=== PATIENT | male | born 1955 | race Caucasian/White ===

== ENCOUNTER 2017-11-03 11:00 | Emergency (ER) | payer BC, OTHER ==
[2017-11-03] MEDS ORDERED: Sodium Chloride 0.9% 10 ML Syringe FLUSH PRN (11:49)
[2017-11-03] MEDS ORDERED: Labetalol 100 MG/20 ML MDV IVPUSH ONE ×2 (11:49→12:59)
[2017-11-03] MEDS ORDERED: Meclizine 12.5 MG Tab PO ONE (11:52)
--- NOTE | 2017-11-03 12:44 | CT ---
Head CT Technique: Multiple axial sections through the brain were obtained. Intravenous contrast was not utilized. Comparison: No prior intracranial imaging. Findings: Ventricles along with basal cisterns and sulci over the convexities are mildly prominent. Diminished density is noted within the periventricular and subcortical white matter compatible with small vessel ischemic demyelination change. No other abnormal parenchymal densities are seen. No evidence of intracranial hemorrhage. No midline shift or mass effect is seen. Bone window settings were reviewed which shows the visualized sinuses to appear clear. No acute calvarial abnormality is seen. Impression: 1. Senescent change as noted above. No acute intracranial abnormality is identified on noncontrast head CT exam. Diagnostic code #1
--- NOTE | 2017-11-03 12:50 | CR ---
Chest: Portable view of the chest was obtained. Comparison: No prior chest x-ray, prior chest CT of 03/15/14. Heart is enlarged. Tortuous thoracic aorta is seen. Lungs are clear with no acute parenchymal densities. Possible small right sided pleural effusion is noted. Bony structures are grossly intact. Impression: 1. Cardiomegaly. Possible small right sided pleural effusion. 2. No additional abnormality is seen on portable chest x-ray. Diagnostic code #2
[2017-11-03] MEDS ORDERED: Ondansetron 4 MG/2 ML SDV IVPUSH STA (13:19)
[2017-11-03] MEDS ORDERED: Calcium Gluconate 10% 1 GM/10 ML SDV IVPUSH ONE (14:01)
[2017-11-03] MEDS ORDERED: Sodium Bicarbonate 8.4% 50 MEQ/50 ML Syringe IVPUSH ONE (14:02)
[2017-11-03] MEDS ORDERED: 50% Dextrose in Water 50 ML Syringe ONE (14:29)
[2017-11-03] MEDS ORDERED: 50% Dextrose in Water 50 ML Syringe IVPUSH ONE ×3 (14:32→15:40)
--- NOTE | 2017-11-03 14:33 | EDM.PDOC ---
ED HPI GENERAL MEDICAL PROBLEM - General Chief Complaint: Neurological Problem Stated Complaint: DIZZY Time Seen by Provider: 11/03/17 11:15 Source of Information: Reports: Patient, RN Notes Reviewed - History of Present Illness INITIAL COMMENTS - FREE TEXT/NARRATIVE: 62 year old male comes in with dizziness. He had onset of this yesterday and than again this past morning. He felt that he was "off balance", describes vertigo type sensation of "things moving around about him", feeling motion sick with at least one episode of nausea and vomiting this morning. Symptoms are worse when standing and walking, better when he is lying still not moving. He has hx of htn, has had multiple meds prescribed in the past but has not been taking meds for what sounds like 2 or 3 years, has not seen a medical doctor for a long time. He does deny chest pain, abd pain, Dawn or low back pain at this time.He denies known hx for diabetes, CAD. - Related Data Allergies Allergy/AdvReac Type Severity Reaction Status Date / Time No Known Allergies Allergy Verified 03/12/15 12:47 Home Meds: Home Meds . [No Known Home Meds] 03/15/14 [History] Past Medical History - Past Health History Medical/Surgical History: Denies Medical/Surgical History HEENT History: Reports: Impaired Vision Other HEENT History: Wears glasses Cardiovascular History: Reports: Heart Failure, Hypertension, [place] Musculoskeletal History: Reports: Osteoarthritis Psychiatric History: Reports: Depression Other Psychiatric History: depends on the days Social & Family History - Tobacco Use Smoking Status *Q: Never Smoker - Caffeine Use Caffeine Use: Reports: Soda - Recreational Drug Use Recreational Drug Use: No ED ROS GENERAL - Review of Systems Review Of Systems: See Below Constitutional: Denies: Fever, Chills, Diaphoresis HEENT: Denies: Throat Pain Respiratory: Denies: Shortness of Breath, Pleuritic Chest Pain Cardiovascular: Reports: Lightheadedness. Denies: Chest Pain, Edema GI/Abdominal: Reports: Nausea, Vomiting (gone). Denies: Abdominal Pain, Diarrhea Musculoskeletal: Reports: Neck Pain Skin: Denies: Jaundice, Rash, Erythema Neurological: Reports: Dizziness, Weakness (generalized). Denies: Headache, Numbness, Tingling, Trouble Speaking, Difficulty Walking ED EXAM, DIZZINESS - Physical Exam Exam: See Below General Appearance: Alert, No Apparent Distress Eye Exam: Bilateral Eye: PERRL Throat/Mouth: Normal Inspection Head Exam: Atraumatic. No: Facial Swelling Neck: Supple. No: Lymphadenopathy (L), Lymphadenopathy (R) Respiratory/Chest: No Respiratory Distress, Lungs Clear, Normal Breath Sounds Cardiovascular: Regular Rate, Rhythm GI/Abdominal: Soft, Non-Tender, No Distention. No: Guarding Neurological: Alert, No Motor/Sensory Deficits Back Exam: No: CVA Tenderness (L), CVA Tenderness (R) Extremities: Other (there is duskiness of distal fingers bilat., feet are cool ). No: Pedal Edema, Leg Pain EKG INTERPRETATION EKG Date: 11/03/17 Rhythm: NSR Donovan: Normal P-Wave: Present QRS: Other (ventricular hypertrophy) ST-T: Other (peaked t wave) Course - Vital Signs Last Recorded V/S: Last Vital Signs Temp 95.7 F 11/03/17 11:15 Pulse 60 11/03/17 14:49 Resp 18 11/03/17 14:49 BP 159/88 H 11/03/17 14:49 Pulse Ox 93 L 11/03/17 14:49 - Orders/Labs/Meds Orders: Active Orders 24 hr Category Date Time Status EKG 12 Lead [EKG Documentation Completion] [RC] STAT Care 11/03/17 11:48 Active Glucose [Blood Glucose Check, Bedside] [RC] ONETIME Care 11/03/17 17:07 Active POC Glucose [Blood Glucose Check, Bedside] [RC] ONETIME Care 11/03/17 15:25 Active Peripheral IV Care [RC] . DIRECTED Care 11/03/17 11:50 Active HEPATITIS B SURFACE AG [CHEM] Stat Lab 11/03/17 12:15 Received Peripheral IV Insertion Adult [OM.PC] Stat Oth 11/03/17 11:49 Ordered Labs: Laboratory Tests 11/03/17 11/03/17 11/03/17 Range/Units 12:15 12:15 12:15 WBC 11.53 H (4.23-9.07) K/mm3 RBC 4.58 L (4.63-6.08) M/mm3 Hgb 11.9 L (13.7-17.5) gm/L Hct 39.5 L (40.1-51.0) % MCV 86.2 (79.0-92.2) fl MCH 26.0 (25.7-32.2) pg MCHC 30.1 L (32.2-35.5) g/dl RDW Std Deviation 60.3 H (35.1-43.9) fL Plt Count 207 (163-337) K/mm3 MPV 10.7 (9.4-12.3) fl Neut % (Auto) 75.6 H (34.0-67.9) % Lymph % (Auto) 7.6 L (21.8-53.1) % [place] % (Auto) 12.3 H (5.3-12.2) % Eos % (Auto) 0.1 L (0.8-7.0) Baso % (Auto) 0.2 (0.1-1.2) % Neut # (Auto) 8.71 H (1.78-5.38) K/mm3 Lymph # (Auto) 0.88 L (1.32-3.57) K/mm3 [place] # (Auto) 1.42 H (0.30-0.82) K/mm3 Eos # (Auto) 0.01 L (0.04-0.54) K/mm3 Baso # (Auto) 0.02 (0.01-0.08) K/mm3 Manual Slide Review Abnormal smear Sodium 138 (136-145) mEq/L Potassium 6.2 H* (3.5-5.1) mEq/L Chloride 104 (98-107) mEq/L Carbon Dioxide 9 L (21-32) mEq/L Anion Gap 31.2 H (5-15) BUN 62 H (7-18) mg/dL Creatinine 4.0 H (0.7-1.3) mg/dL Est Cr Clr Drug Dosing 18.29 mL/min Estimated GFR (MDRD) 15 (>60) mL/min BUN/Creatinine Ratio 15.5 (14-18) Glucose 41 L (80-115) mg/dL POC Glucose (80-115) mg/dL Calcium 9.0 (8.5-10.1) mg/dL Total Bilirubin 3.4 H (0.2-1.0) mg/dL AST 4307 H (15-37) U/L ALT 2403 H (16-63) U/L Alkaline Phosphatase 150 H (46-116) U/L Troponin I 0.302 H* (0.00-0.056) ng/mL Total Protein 9.3 H (6.4-8.2) g/dl Albumin 3.3 L (3.4-5.0) g/dl Globulin 6.0 gm/dL Albumin/Globulin Ratio 0.6 L (1-2) Acetaminophen (10-30) ug/mL Hepatitis C Antibody Negative (NEGATIVE) HIV-1 Ab Rapid Screen Negative (NEGATIVE) 11/03/17 11/03/17 11/03/17 Range/Units 13:30 15:02 15:35 WBC (4.23-9.07) K/mm3 RBC (4.63-6.08) M/mm3 Hgb (13.7-17.5) gm/L Hct (40.1-51.0) % MCV (79.0-92.2) fl MCH (25.7-32.2) pg MCHC (32.2-35.5) g/dl RDW Std Deviation (35.1-43.9) fL Plt Count (163-337) K/mm3 MPV (9.4-12.3) fl Neut % (Auto) (34.0-67.9) % Lymph % (Auto) (21.8-53.1) % [place] % (Auto) (5.3-12.2) % Eos % (Auto) (0.8-7.0) Baso % (Auto) (0.1-1.2) % Neut # (Auto) (1.78-5.38) K/mm3 Lymph # (Auto) (1.32-3.57) K/mm3 [place] # (Auto) (0.30-0.82) K/mm3 Eos # (Auto) (0.04-0.54) K/mm3 Baso # (Auto) (0.01-0.08) K/mm3 Manual Slide Review Sodium (136-145) mEq/L Potassium 6.8 H* (3.5-5.1) mEq/L Chloride (98-107) mEq/L Carbon Dioxide (21-32) mEq/L Anion Gap (5-15) BUN (7-18) mg/dL Creatinine (0.7-1.3) mg/dL Est Cr Clr Drug Dosing mL/min Estimated GFR (MDRD) (>60) mL/min BUN/Creatinine Ratio (14-18) Glucose 266 H (80-115) mg/dL POC Glucose 33 L (80-115) mg/dL Calcium (8.5-10.1) mg/dL Total Bilirubin (0.2-1.0) mg/dL AST (15-37) U/L ALT (16-63) U/L Alkaline Phosphatase (46-116) U/L Troponin I (0.00-0.056) ng/mL Total Protein (6.4-8.2) g/dl Albumin (3.4-5.0) g/dl Globulin gm/dL Albumin/Globulin Ratio (1-2) Acetaminophen (10-30) ug/mL Hepatitis C Antibody (NEGATIVE) HIV-1 Ab Rapid Screen (NEGATIVE) 11/03/17 11/03/17 11/03/17 Range/Units 15:38 16:09 17:01 WBC (4.23-9.07) K/mm3 RBC (4.63-6.08) M/mm3 Hgb (13.7-17.5) gm/L Hct (40.1-51.0) % MCV (79.0-92.2) fl MCH (25.7-32.2) pg MCHC (32.2-35.5) g/dl RDW Std Deviation (35.1-43.9) fL Plt Count (163-337) K/mm3 MPV (9.4-12.3) fl Neut % (Auto) (34.0-67.9) % Lymph % (Auto) (21.8-53.1) % [place] % (Auto) (5.3-12.2) % Eos % (Auto) (0.8-7.0) Baso % (Auto) (0.1-1.2) % Neut # (Auto) (1.78-5.38) K/mm3 Lymph # (Auto) (1.32-3.57) K/mm3 [place] # (Auto) (0.30-0.82) K/mm3 Eos # (Auto) (0.04-0.54) K/mm3 Baso # (Auto) (0.01-0.08) K/mm3 Manual Slide Review Sodium (136-145) mEq/L Potassium (3.5-5.1) mEq/L Chloride (98-107) mEq/L Carbon Dioxide (21-32) mEq/L Anion Gap (5-15) BUN (7-18) mg/dL Creatinine (0.7-1.3) mg/dL Est Cr Clr Drug Dosing mL/min Estimated GFR (MDRD) (>60) mL/min BUN/Creatinine Ratio (14-18) Glucose (80-115) mg/dL POC Glucose 35 L 60 L (80-115) mg/dL Calcium (8.5-10.1) mg/dL Total Bilirubin (0.2-1.0) mg/dL AST (15-37) U/L ALT (16-63) U/L Alkaline Phosphatase (46-116) U/L Troponin I (0.00-0.056) ng/mL Total Protein (6.4-8.2) g/dl Albumin (3.4-5.0) g/dl Globulin gm/dL Albumin/Globulin Ratio (1-2) Acetaminophen 0 L (10-30) ug/mL Hepatitis C Antibody (NEGATIVE) HIV-1 Ab Rapid Screen (NEGATIVE) Meds: Medications Discontinued Medications Generic Name Dose Route Start Last Admin Trade Name Freq PRN Reason Stop Dose Admin Calcium Gluconate 1 gm 11/03/17 14:01 11/03/17 14:21 Calcium Gluconate IVPUSH 11/03/17 14:02 1 gm ONETIME ONE Administration Dextrose/Water 50 ml 11/03/17 14:32 11/03/17 15:07 Dextrose 50% In Water IVPUSH 11/03/17 14:33 50 ml ASDIRECTED STA Administration Dextrose/Water 50 ml 11/03/17 14:32 11/03/17 14:33 Dextrose 50% In Water IVPUSH 11/03/17 14:33 50 ml ONETIME ONE Administration Dextrose/Water Confirm 11/03/17 14:29 11/03/17 14:36 Dextrose 50% In Water Administered 11/03/17 14:30 Not Given Dose 50 ml .ROUTE .STK-MED ONE Dextrose/Water 50 ml 11/03/17 15:17 11/03/17 16:26 Dextrose 50% In Water IVPUSH 11/03/17 15:18 Not Given ONETIME ONE Dextrose/Water 50 ml 11/03/17 15:40 11/03/17 15:52 Dextrose 50% In Water IVPUSH 11/03/17 15:41 50 ml ONETIME ONE Administration Dextrose/Lactated Ringer's 1,000 mls @ 999 mls/hr 11/03/17 16:30 11/03/17 16: 24 Dextrose 5%-Lactated Ringers IV 999 mls/hr ASDIRECTED SUZE Administration Dextrose/Lactated Ringer's Confirm 11/03/17 16:17 11/03/17 16:26 Dextrose 5%-Lactated Ringers Administered 11/03/17 16:18 Not Given Dose 1,000 mls @ as directed .ROUTE .STK-MED ONE Labetalol HCl 20 mg 11/03/17 11:49 11/03/17 12:34 Normodyne IVPUSH 20 mg ONETIME ONE Administration Protocol Labetalol HCl 40 mg 11/03/17 12:59 11/03/17 13:05 Normodyne IVPUSH 11/03/17 13:00 40 mg ONETIME ONE Administration Protocol Meclizine HCl 12.5 mg 11/03/17 11:52 11/03/17 12:33 Antivert PO 12.5 mg ONETIME ONE Administration Ondansetron HCl 4 mg 11/03/17 13:19 11/03/17 13:26 Zofran IVPUSH 11/03/17 13:20 4 mg ONETIME STA Administration Sodium Bicarbonate 50 meq 11/03/17 14:02 11/03/17 14:15 Sodium Bicarbonate 8.4% IVPUSH 11/03/17 14:03 50 meq ONETIME ONE Administration Sodium Chloride 10 ml 11/03/17 11:49 11/03/17 12:37 Saline Flush FLUSH 10 ml ASDIRECTED PRN Administration Keep Vein Open Sodium Polystyrene Sulfonate 15 gm 11/03/17 16:14 11/03/17 17:00 Kayexalate PO 11/03/17 16:15 15 gm ONETIME ONE Administration - Re-Assessments/Exams Free Text/Narrative Re-Assessment/Exam: 11/03/17 19:27 BP extremely high on arrival, in the 220/120 range. Treated with labetalol 20 mg IV with minimal change in BP, gave a follow up dose of 40 mg labetalol IV and with that his BP eventially did come down to the 140 to 160/90 range. Labs came back with a lot of abnormal findings, K+ 6.8, BUN elevated, creatnine 4.0 , glucose 42. We did give some glucose with sugar, 1 amp D50, bedside glucose still low in the 30 to 35 range. Given 2 more amps D50 over time with bedside reading finally up to 60. However with lab glucose check glucose actually 266. I did discuss transfer early on with patient and his brother. Patient very opposed to going to [place]. I discussed with our Hospitalist about admission here, strongly refused based on severity of multiple medical problems. Patient was transferred to [facility] per patient and family request, Dr Vigil, Hospitalist accepting Phys. Transferred by ground ambulance. Departure - Departure Time of Disposition: 16:05 Disposition: DC/Tfer to [facility] Clinical Impression: Hypertensive emergency, no CHF, Hyperkalemia, Hypokalemia Renal failure Qualifiers: Renal failure chronicity: acute on chronic Acute renal failure type: unspecified Chronic kidney disease stage: unspecified stage Qualified Code(s): N17.9 - Acute kidney failure, unspecified - Discharge Information Referrals: PCP,None [Primary Care Provider] - Forms: ED Department Discharge - My Orders Last 24 Hours: My Active Orders 11/03/17 11:48 EKG 12 Lead [EKG Documentation Completion] [RC] STAT 11/03/17 11:49 Peripheral IV Insertion Adult [OM.PC] Stat 11/03/17 11:50 Peripheral IV Care [RC] . DIRECTED 11/03/17 15:25 POC Glucose [Blood Glucose Check, Bedside] [RC] ONETIME 11/03/17 17:07 Glucose [Blood Glucose Check, Bedside] [RC] ONETIME - Assessment/Plan Last 24 Hours: My Active Orders 11/03/17 11:48 EKG 12 Lead [EKG Documentation Completion] [RC] STAT 11/03/17 11:49 Peripheral IV Insertion Adult [OM.PC] Stat 11/03/17 11:50 Peripheral IV Care [RC] . DIRECTED 11/03/17 15:25 POC Glucose [Blood Glucose Check, Bedside] [RC] ONETIME 11/03/17 17:07 Glucose [Blood Glucose Check, Bedside] [RC] ONETIME
[2017-11-03] MEDS: 50% Dextrose in Water 50 ML Syringe IVPUSH STA ×2 (14:34→15:07)
[2017-11-03 14:49] VITALS: BP 159/88
[2017-11-03] MEDS ORDERED: Sodium Polystyrene Sulfonate 15 GM/60 ML Susp 60 ML Bot PO ONE (16:14)
[2017-11-03] MEDS ORDERED: Dextrose 5%-Lactated Ringers 1,000 ML ONE (16:17)
[2017-11-03] MEDS ORDERED: Dextrose 5%-Lactated Ringers 1,000 ML IV SCH (16:30)
== END 2017-11-03 17:25 ==
LOC: JD.ED 11:00
DX: N17.9 Acute kidney failure, unspecified (principal); I16.1 Hypertensive emergency; I11.0 Hypertensive heart disease with heart failure; I50.9 Heart failure, unspecified; E87.5 Hyperkalemia
CPT/HCPCS: 36415; 70450; 71045; 80053; 82947; 82962; 84132; 84484; 85025; 93005; 96361; 96374; 96375; 96376; 99285; A9270; G0480; J0610; J2405; J3490; J7042; J7050; J7060; 86803; 93010; G0433

== ENCOUNTER 2019-08-01 16:55 | Emergency (ER) | payer MEDICARE, OTHER ==
[2019-08-01 17:10] VITALS: BP 207/128; PULSE 102
[2019-08-01] MEDS ORDERED: LORazepam 2 MG/ML SDV IVPUSH ONE ×2 (17:10→19:52)
--- NOTE | 2019-08-01 17:14 | EDM.PDOC ---
ED HPI GENERAL MEDICAL PROBLEM - General Chief Complaint: Neurological Problem Stated Complaint: LETHARGY Time Seen by Provider: 08/01/19 17:00 Source of Information: Reports: Patient, Family ( brother ) History Limitations: Reports: Altered Mental Status (sides most of the history.), Combative/Threatening - History of Present Illness INITIAL COMMENTS - FREE TEXT/NARRATIVE: 64-year-old male presents to the ED in the accompaniment of his brother who brought him to the hospital. He found his brother confused disoriented and somewhat combative at home here in [place] today. He states he last seen him yesterday morning and he was fine. Combative and difficult to try and examine as he lies in the position and grabs a hold of anything that gets near him. His pants are undone he had shoes on the wrong way on both feet and obviously is confused. There were no obvious signs of head trauma. He does feel very warm to palpation. Fairly he has known severe hypertension was recently started on Imdur Thursday last week by Dr. mohinder Gomez. His brother reports that he got worse over the last 25 minutes. He walked out of the truck on his own volition but he could not get out of the truck on his own volition he required nursing help. He seems to be more confused disoriented and combative. He does not drink alcohol. Does not speak at all but will make eye contact and then look away. He will not answer any questions. His brother is here with him and spends every day with him and he is acting like he is mad and frustrated as his brother for bringing him to the hospital. Onset: Unknown/Unsure (Problems develop today but this is not clear it could have been last evening as well.) Duration: Hour(s):, Getting Worse Location: Reports: Generalized Quality: Reports: Other (Change in cognitive function with altered level of consciousness and being combative.) Severity: Severe Improves with: Reports: None Worsens with: Reports: Other (Worsens with) Context: Reports: Other (Tenia's change in level of consciousness and behavior). Denies: Activity (Attention by staff.), Exercise, Lifting, Sick Contact, Trauma Associated Symptoms: Reports: Confusion, Fever/Chills (Feels very warm to palpation.) Treatments [employer]: Reports: Other (see below) (Known.) - Related Data Allergies Allergy/AdvReac Type Severity Reaction Status Date / Time No Known Allergies Allergy Verified 08/01/19 17:10 Home Meds: Home Meds . [No Known Home Meds] 03/15/14 [History] Past Medical History - Past Health History Medical/Surgical History: Denies Medical/Surgical History HEENT History: Reports: Impaired Vision Other HEENT History: Wears glasses Cardiovascular History: Reports: Heart Failure, Hypertension (Appears to be poorly controlled. Unknown if he is compliant with medication), IA Musculoskeletal History: Reports: Osteoarthritis Psychiatric History: Reports: Depression Other Psychiatric History: depends on the days Social & Family History - Caffeine Use Caffeine Use: Reports: Soda - Living Situation & Occupation Living situation: Reports: Single (El[employer] employed) Occupation: Employed ED ROS GENERAL - Review of Systems Review Of Systems: Unable To Obtain Reason Not Obtained: Able to obtain as the patient is nonverbal at this time . ED EXAM, NEURO - Physical Exam Exam: See Below Exam Limited By: Other General Appearance: Moderate Distress (He is curled up in the position lying on his right lateral decubitus position. He is resistant to care if you try to move his hands he will grab or squeeze or pull away. He seems to be completely disoriented to person time and place and has altered level of consciousness. He is very warm to palpation. Resistant to care provided by nursing staff.), Other (Temperature is 38.4 with a heart rate of 102. Respiratory to be 18. ) Eye Exam: Bilateral Eye: Normal Inspection, PERRL (Gaze palsy.) Throat/Mouth: Normal Inspection, Normal Lips, Normal Oropharynx, Other (Is dry and coated.). No: Normal Teeth Head Exam: Atraumatic, Normocephalic, Other (Outward signs of head or facial trauma.) Neck: Limited Range of Motion. No: Carotid Bruit, Lymphadenopathy (L), Lymphadenopathy (R), Thyromegaly Respiratory/Chest: No Respiratory Distress, Lungs Clear, Normal Breath Sounds, No Accessory Muscle Use Cardiovascular: Normal Peripheral Pulses (Tachycardic at 104/min), Regular Rate, Rhythm, No Edema, No Gallop, No Murmur, No Rub, Tachycardia GI/Abdominal: Normal Bowel Sounds, Soft, Non-Tender, No Organomegaly, No Abnormal Bruit, No Mass, Pelvis Stable Neurological: Normal Dorsiflexion, Normal Plantar Flexion, No Motor/Sensory Deficits, Other (Unable to establish as the patient will not answer questions. He seems confused and disoriented. Possibly acute delirium from high fever.) DTR: 0: Achilles (R), Achilles (L), 1+: Bicep (R), Bicep (L), Patella (R), Patella (L) Back Exam: Normal Inspection, Other (Unable to establish range of motion.) Extremities: Other (She has stigmata of rheumatoid arthritis with marked deformities of all of his metacarpal phalangeal joints both hands and both feet. He has stiffness and joint swelling in both knees with increased warmth in both knees as well.) Psychiatric: Other (We will to establish as the patient is noncommunicative.) Skin Exam: Warm, Dry, Intact, Normal Color, No Rash EKG INTERPRETATION EKG Date: 08/01/19 Time: 17:36 Rhythm: NSR Rate (Beats/Min): 98 [place]: Normal P-Wave: Present QRS: Other (Creased voltage in the precordial leads) ST-T: Other (T wave inversion V1 to V5 leads III and aVF. Possible ischemia ST segment depression V6 and lead I.) QT: Normal EKG Interpretation Comments: Borderline ECG Course - Vital Signs Last Recorded V/S: Last Vital Signs Temp 38.4 C H 08/01/19 18:14 Pulse 102 H 08/01/19 17:02 Resp 18 08/01/19 17:02 BP 207/128 H 08/01/19 17:02 Pulse Ox - Orders/Labs/Meds Orders: Active Orders 24 hr Category Date Time Status Blood Glucose Check, Bedside [RC] ONETIME Care 08/01/19 17:10 Active EKG Documentation Completion [RC] STAT Care 08/01/19 17:10 Active CULTURE BLOOD [BC] Stat Lab 08/01/19 17:35 Received CULTURE BLOOD [BC] Stat Lab 08/01/19 18:00 Received DRUG SCREEN, URINE [URCHEM] Stat Lab 08/01/19 21:22 Ordered Dextrose 5%-0.9% NaCl [Dextrose 5%-Normal Saline] 1,000 Med 08/01/19 21:00 Active ml IV ASDIRECTED niCARdipine HCl [Nicardipine HCl] 25 mg Med 08/01/19 19:45 Active Sodium Chloride 0.9% [Normal Saline] 250 ml IV TITRATE Blood Culture x2 Reflex Set [OM.PC] Stat Oth 08/01/19 17:10 Ordered Medication Orders Nicardipine HCl 25 mg/ Sodium (Chloride) 260 mls @ 52 mls/hr IV TITRATE SUZE Dextrose/Sodium Chloride (Dextrose 5%-Normal Saline) 1,000 mls @ 50 mls/hr IV ASDIRECTED [facility] Labs: Laboratory Tests 08/01/19 08/01/19 08/01/19 Range/Units 17:08 17:12 17:12 WBC 7.61 (4.23-9.07) K/mm3 RBC 3.46 L (4.63-6.08) M/mm3 Hgb 11.3 L D (13.7-17.5) gm/dl Hct 34.5 L (40.1-51.0) % MCV 99.7 H (79.0-92.2) fl MCH 32.7 H (25.7-32.2) pg MCHC 32.8 (32.2-35.5) g/dl RDW Std Deviation 57.9 H (35.1-43.9) fL Plt Count 76 L (163-337) K/mm3 MPV TNP Neutrophils % (Manual) 78 H (40-60) % Band Neutrophils % 0 (0-10) % Lymphocytes % (Manual) 9 L (20-40) % Atypical Lymphs % 0 % Monocytes % (Manual) 13 H (2-10) % Eosinophils % (Manual) 0 L (0.8-7.0) % Basophils % (Manual) 0 L (0.2-1.2) Platelet Estimate Decreased Hypochromasia 1+ slight Anisocytosis 1+ slight RBC Morph Comment Not Reportable Sodium 138 (136-145) mEq/L Potassium 5.4 H (3.5-5.1) mEq/L Chloride 105 (98-107) mEq/L Carbon Dioxide 18 L (21-32) mEq/L Anion Gap 20.4 H (5-15) BUN 54 H (7-18) mg/dL Creatinine 3.5 H (0.7-1.3) mg/dL Est Cr Clr Drug Dosing TNP Estimated GFR (MDRD) 18 (>60) mL/min BUN/Creatinine Ratio 15.4 (14-18) Glucose 139 H (80-115) mg/dL POC Glucose 140 H (80-115) mg/dL Lactic Acid (0.4-2.0) mmol/L Calcium 8.7 (8.5-10.1) mg/dL Magnesium 1.7 L (1.8-2.4) mg/dl Total Bilirubin 0.8 (0.2-1.0) mg/dL AST 37 (15-37) U/L ALT 25 (16-63) U/L Alkaline Phosphatase 79 (46-116) U/L CK-MB (CK-2) (0-3.6) ng/ml Troponin I (0.00-0.056) ng/mL C-Reactive Protein 4.9 H* (<1.0) mg/dL NT-Pro-B Natriuret Pep (0-125) pg/mL Total Protein 8.9 H (6.4-8.2) g/dl Albumin 3.2 L (3.4-5.0) g/dl Globulin 5.7 gm/dL Albumin/Globulin Ratio 0.6 L (1-2) Urine Color (Yellow) Urine Appearance (Clear) Urine pH (5.0-8.0) Ur Specific [place] (1.005-1.030) Urine Protein (Negative) Urine Glucose (UA) (Negative) Urine Ketones (Negative) Urine Occult Blood (Negative) Urine Nitrite (Negative) Urine Bilirubin (Negative) Urine Urobilinogen (0.2-1.0) Ur Leukocyte Esterase (Negative) U Hyaline Cast (Auto) (0-5) /lpf Urine RBC (0-5) /hpf Urine WBC (0-5) /hpf Ur Squamous Epith Cells (0-5) /hpf Amorphous Sediment (NOT SEEN) /hpf Urine Bacteria (FEW) /hpf Urine Mucus (FEW) /hpf Ethyl Alcohol (0.00) gm% 08/01/19 08/01/19 08/01/19 Range/Units 17:12 17:12 17:12 WBC (4.23-9.07) K/mm3 RBC (4.63-6.08) M/mm3 Hgb (13.7-17.5) gm/dl Hct (40.1-51.0) % MCV (79.0-92.2) fl MCH (25.7-32.2) pg MCHC (32.2-35.5) g/dl RDW Std Deviation (35.1-43.9) fL Plt Count (163-337) K/mm3 MPV Neutrophils % (Manual) (40-60) % Band Neutrophils % (0-10) % Lymphocytes % (Manual) (20-40) % Atypical Lymphs % % Monocytes % (Manual) (2-10) % Eosinophils % (Manual) (0.8-7.0) % Basophils % (Manual) (0.2-1.2) Platelet Estimate Hypochromasia Anisocytosis RBC Morph Comment Sodium (136-145) mEq/L Potassium (3.5-5.1) mEq/L Chloride (98-107) mEq/L Carbon Dioxide (21-32) mEq/L Anion Gap (5-15) BUN (7-18) mg/dL Creatinine (0.7-1.3) mg/dL Est Cr Clr Drug Dosing Estimated GFR (MDRD) (>60) mL/min BUN/Creatinine Ratio (14-18) Glucose (80-115) mg/dL POC Glucose (80-115) mg/dL Lactic Acid 2.0 (0.4-2.0) mmol/L Calcium (8.5-10.1) mg/dL Magnesium (1.8-2.4) mg/dl Total Bilirubin (0.2-1.0) mg/dL AST (15-37) U/L ALT (16-63) U/L Alkaline Phosphatase (46-116) U/L CK-MB (CK-2) (0-3.6) ng/ml Troponin I (0.00-0.056) ng/mL C-Reactive Protein (<1.0) mg/dL NT-Pro-B Natriuret Pep > 86375 H (0-125) pg/mL Total Protein (6.4-8.2) g/dl Albumin (3.4-5.0) g/dl Globulin gm/dL Albumin/Globulin Ratio (1-2) Urine Color (Yellow) Urine Appearance (Clear) Urine pH (5.0-8.0) Ur Specific [place] (1.005-1.030) Urine Protein (Negative) Urine Glucose (UA) (Negative) Urine Ketones (Negative) Urine Occult Blood (Negative) Urine Nitrite (Negative) Urine Bilirubin (Negative) Urine Urobilinogen (0.2-1.0) Ur Leukocyte Esterase (Negative) U Hyaline Cast (Auto) (0-5) /lpf Urine RBC (0-5) /hpf Urine WBC (0-5) /hpf Ur Squamous Epith Cells (0-5) /hpf Amorphous Sediment (NOT SEEN) /hpf Urine Bacteria (FEW) /hpf Urine Mucus (FEW) /hpf Ethyl Alcohol 0.00 (0.00) gm% 08/01/19 08/01/19 Range/Units 17:35 20:08 WBC (4.23-9.07) K/mm3 RBC (4.63-6.08) M/mm3 Hgb (13.7-17.5) gm/dl Hct (40.1-51.0) % MCV (79.0-92.2) fl MCH (25.7-32.2) pg MCHC (32.2-35.5) g/dl RDW Std Deviation (35.1-43.9) fL Plt Count (163-337) K/mm3 MPV Neutrophils % (Manual) (40-60) % Band Neutrophils % (0-10) % Lymphocytes % (Manual) (20-40) % Atypical Lymphs % % Monocytes % (Manual) (2-10) % Eosinophils % (Manual) (0.8-7.0) % Basophils % (Manual) (0.2-1.2) Platelet Estimate Hypochromasia Anisocytosis RBC Morph Comment Sodium (136-145) mEq/L Potassium (3.5-5.1) mEq/L Chloride (98-107) mEq/L Carbon Dioxide (21-32) mEq/L Anion Gap (5-15) BUN (7-18) mg/dL Creatinine (0.7-1.3) mg/dL Est Cr Clr Drug Dosing Estimated GFR (MDRD) (>60) mL/min BUN/Creatinine Ratio (14-18) Glucose (80-115) mg/dL POC Glucose (80-115) mg/dL Lactic Acid (0.4-2.0) mmol/L Calcium (8.5-10.1) mg/dL Magnesium (1.8-2.4) mg/dl Total Bilirubin (0.2-1.0) mg/dL AST (15-37) U/L ALT (16-63) U/L Alkaline Phosphatase (46-116) U/L CK-MB (CK-2) 1.5 (0-3.6) ng/ml Troponin I 0.518 H* (0.00-0.056) ng/mL C-Reactive Protein (<1.0) mg/dL NT-Pro-B Natriuret Pep (0-125) pg/mL Total Protein (6.4-8.2) g/dl Albumin (3.4-5.0) g/dl Globulin gm/dL Albumin/Globulin Ratio (1-2) Urine Color Yellow (Yellow) Urine Appearance Clear (Clear) Urine pH 6.0 (5.0-8.0) Ur Specific [place] > or = 1.030 (1.005-1.030) Urine Protein 3+ H (Negative) Urine Glucose (UA) Negative (Negative) Urine Ketones Negative (Negative) Urine Occult Blood 3+ H (Negative) Urine Nitrite Negative (Negative) Urine Bilirubin Negative (Negative) Urine Urobilinogen 0.2 (0.2-1.0) Ur Leukocyte Esterase Negative (Negative) U Hyaline Cast (Auto) 0-5 (0-5) /lpf Urine RBC 10-20 H (0-5) /hpf Urine WBC 0-5 (0-5) /hpf Ur Squamous Epith Cells 0-5 (0-5) /hpf Amorphous Sediment Few H (NOT SEEN) /hpf Urine Bacteria Few (FEW) /hpf Urine Mucus Rare (FEW) /hpf Ethyl Alcohol (0.00) gm% Meds: Medications Generic Name Dose Route Start Last Admin Trade Name Freq PRN Reason Stop Dose Admin Nicardipine HCl 25 mg/ Sodium 260 mls @ 52 mls/hr 08/01/19 19:45 Chloride IV TITRATE SUZE 5 MG/HR Dextrose/Sodium Chloride 1,000 mls @ 50 mls/hr 08/01/19 21:00 Dextrose 5%-Normal Saline IV ASDIRECTED SUZE Discontinued Medications Generic Name Dose Route Start Last Admin Trade Name Freq PRN Reason Stop Dose Admin Acetaminophen 650 mg 08/01/19 17:52 08/01/19 18:14 Tylenol RECTAL 08/01/19 17:53 650 mg NOW ONE Administration Furosemide 40 mg 08/02/19 09:00 Lasix IVPUSH DAILY SUZE Furosemide 40 mg 08/01/19 19:54 08/01/19 19:58 Lasix IVPUSH 08/01/19 19:55 40 mg NOW STA Administration Sodium Chloride 1,000 mls @ 100 mls/hr 08/01/19 17:15 Normal Saline IV ASDIRECTED SUZE Nicardipine HCl 25 mg/ Sodium 260 mls @ 52 mls/hr 08/01/19 17:15 08/01/19 18:45 Chloride IV 5 mg/hr ASDIRECTED SUZE 52 mls/hr Administration 5 MG/HR Dextrose/Sodium Chloride 1,000 mls @ 500 mls/hr 08/01/19 18:00 08/01/19 18:45 Dextrose 5%-Normal Saline IV 500 mls/hr ASDIRECTED SUZE Administration Nicardipine HCl 25 mg/ Sodium 260 mls @ 78 mls/hr 08/01/19 19:15 Chloride IV ASDIRECTED SUZE 7.5 MG/HR Lorazepam 1 mg 08/01/19 17:10 08/01/19 17:18 Ativan IVPUSH 08/01/19 17:11 1 mg ONETIME ONE Administration Lorazepam Confirm 08/01/19 17:15 08/01/19 17:18 Ativan Administered 08/01/19 17:16 Not Given Dose 2 mg .ROUTE .STK-MED ONE Lorazepam 1 mg 08/01/19 19:52 08/01/19 19:57 Ativan IVPUSH 08/01/19 19:53 1 mg ONETIME ONE Administration - Radiology Interpretation Free Text/Narrative:: 64-year-old male brought to the ED by his brother. He found him in a disheveled state and seemed to be confused with altered level of consciousness this afternoon. He had last seen him yesterday morning and he was fine. Patient lives by himself and is self-employed. Apparently he was taken to [place] by this brother on Thursday last week to see the doctor about his blood pressure and was placed on Imdur 30 mg daily for suspected unstable angina. Also using it for hypertension control. Patient presents in a combat of resistant state. He appears to be confused and completely disoriented to person place and time. Apparently he walked to the vehicle but he could not get out of the truck to come into the ED without nursing help. He is nonverbal and will not answer any questions. Blood pressure is markedly elevated at 224 /128. Is very warm to palpation and measured temperature was 102.6. Therefore he could be developing a sepsis. His blood pressure is high enough that he could have an intracranial hemorrhage. Plan will be to give him Ativan 1 mg IV to facilitate CT of the head to rule out intracranial mass lesion. He will have septic work-up complet ed. Other indicates that his CODE STATUS is DO NOT RESUSCITATE DO NOT INTUBATE. - Re-Assessments/Exams Free Text/Narrative Re-Assessment/Exam: 08/01/19 17:32: Head CT has been completed without contrast. It reveals dilated ventricles with a lot of encephalomalacia around the entire lateral ventricles indicating advanced degenerative brain disease. No intracranial bleeding or mass-effect. And his density is noted within the periventricular and subcortical white matter which is combined with small vessel ischemic demyelination changes. Mucosal thickening or retention cyst is noted inferiorly within the right maxillary sinus. Minimal areas of mucosal thickening are noted within the ethmoid sinuses as well. Mastoid sinuses are clear. Therefore it appears that the patient is experiencing acute delirium from high fever. Will get be given rectal suppository of Tylenol 650 mg to bring his temperature down. Septic work-up has been started. 08/01/19 18:22 White count is 7.61. 70% neutrophils no bands cells reported hemoglobin 11.3 with hematocrit of 34.5. MCV is elevated at 99.7. Platelet count is 76,000 which is low. The slide shows 1+ hypochromasia 1+ anisocytosis. Bedside glucose was 148 lactic acid is 2.0. The above labs with an elevated MCV and low platelet count suggest that he may be a closet alcoholic that his brother does not know about. Brother came back and alerted to the fact that the patient has been on immunosuppressive therapy for several years for his rheumatoid arthritis. Apparently has had rheumatoid arthritis for greater than 20 years. Only affected his hands and his feet. Mildly in his knees. He states that he therefore has a low white count and a low platelet count chronically and his immunosuppressive medication was discontinued about 2 weeks ago because of this. Apparently he has been having up-and-down fevers of unclear origin for a lengthy period of time. Story is still pending. Chest x- ray is yet to be done. Blood pressure is still markedly elevated at 179 /135 on nicardipine drip for the last 15 minutes 5 mg/h. Plan will be to increase the nicardipine drip to 7.5 mg/h. Plan will be to increase it by 2.5 mg every 15 to 20 minutes to achieve satisfactory blood pressure usually between 160 and 170 on the systolic side and 90-100 on the diastolic side. 08/01/19 19:12 Chemistry is now back showing a sodium of 138 potassium is mildly elevated at 5.4. Chloride is 105 with a bicarb of 18 anion gap is 20.4 BUN is 54 creatinine is 3.5 indicating that he is significantly volume depleted. Although I have no records to suggest that he may have underlying renal disease. GFR is down to 18. Glucose is 139 lactic acid is 2.0. Calcium 8.7 with a magnesium low at 1.7. Total bilirubin 0.8 AST is 37 ALT of 25 alk phos days of 79 C-reactive protein is elevated at 4.9 total protein is 8.9 with an albumin fraction of 3.2 . Blood alcohol is 0.0 08/01/19 19:46 serum BNP returned at greater than 35,000. All of the lab and they stated that they tested twice and this is what they came up with. He rolled off the chest x-ray before could be completed and therefore is missing the angle of the right lung. There may be some diffuse mild vascular congestion but there is no significant cardiomegaly although the left ventricle does appear to be mildly prominent on the x-ray. The brother indicates that Brian would not want to go back to [place] at all as he had a very poor experience on his last admission there. He indicates that he is a DO NOT RESUSCITATE DO NOT INTUBATE and request that we keep him here for comfort measures if we cannot do much else for him. 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 Brian never and lives alone and his brother checks on him or brings him along to the farm on a daily basis. Sure went down to 131/71 on the nicardipine drip and therefore it will be reduced back from 7.5 mg an hour to 5 mg an hour. It is also produced a tachycardia about 115/min. I suspect that he may have suffered malignant hypertension which is caused his altered mental state. Possibility of an occult stroke still exists and may be confirmed by MRI tomorrow if he is not coming around. Urinalysis also would help to show me if there was any infection causing his fever. He is still quite feisty and resisted movement to allow appropriate chest x-ray. I need a urinalysis and therefore I am going to give him Ativan 1 mg IV to provide further sedation and then catheterized specimen will be obtained. 08/01/19 20:56 patient has been accepted at [facility] in [place] where he usually doctors with rheumatology etc. Dr. Richardson--closed has accepted care. It appears that he most likely has malignant hypertension which is caused his cognitive and altered mental status correlating with acute cardiomyopathy with severely marked elevation of his BNP and decrease in renal function likely due to hypoperfusion of the kidneys. Carpine drip has been reduced to 2.5 mg an hour as blood pressure has responded well to this medication. Serum troponin came back elevated at 0.518 suggesting acute myocardial ischemia. The CK-MB fraction was 1.5. Did receive a second dose of Ativan 1 mg IV to facilitate catheterization for urine collection and urine drug screen. No obvious source of infection has been identified. I wonder if hypothalamic dysfunction may have occurred due to malignant hypertension precipitating a fever. Patient will be transferred to [facility] in [place] per ground ambulance. 08/01/19 21:18 Urinalysis obtained by catheterization shows 3+ proteinuria and 3+ occult blood . RBCs are 10-20 per hpf. No casts identified. Departure - Departure Time of Disposition: 21:12 Disposition: DC/Tfer to Acute Hospital 02 Condition: Critical Clinical Impression: Malignant hypertension requiring acute intensive management, Elevated troponin I measurement, Chronic renal insufficiency, stage IV (severe), Acute febrile illness Congestive heart failure Qualifiers: Heart failure type: unspecified Heart failure chronicity: unspecified Qualified Code(s): I50.9 - Heart failure, unspecified Rheumatoid arthritis Qualifiers: Rheumatoid arthritis location: multiple sites Rheumatoid factor presence: unspecified presence Qualified Code(s): M06.9 - Rheumatoid arthritis, unspecified - Discharge Information *PRESCRIPTION DRUG MONITORING PROGRAM REVIEWED*: Not Applicable *COPY OF PRESCRIPTION DRUG MONITORING REPORT IN PATIENT DEBORAH: Not Applicable Referrals: PCP,Not In Area [Primary Care Provider] - Additional Instructions: Patient transferred to [facility] in [place] due to multiple comorbidities with altered mental status, renal insufficiency, cardiomyopathy, and malignant hypertension as the likely cause. Also acute febrile illness at 38.4 temperature upon arrival of unclear etiology. Medication for rheumatoid arthritis was discontinued 2 weeks ago due to low white count low platelet count and possibility of causing high fevers. I have no records on this patient to indicate whether or not his blood pressure has ever been elevated. Sepsis Event Note (ED) - Focused Exam Vital Signs: Vital Signs Temp Temp Pulse Resp BP 08/01/19 18:14 38.4 C H 08/01/19 17:02 38.4 C H 102 H 18 207/128 H - My Orders Last 24 Hours: My Active Orders 08/01/19 17:10 Blood Glucose Check, Bedside [RC] ONETIME EKG Documentation Completion [RC] STAT Blood Culture x2 Reflex Set [OM.PC] Stat 08/01/19 17:35 CULTURE BLOOD [BC] Stat 08/01/19 18:00 CULTURE BLOOD [BC] Stat 08/01/19 19:45 niCARdipine HCl [Nicardipine HCl] 25 mg Sodium Chloride 0.9% [Normal Saline] 250 ml IV TITRATE 08/01/19 21:00 Dextrose 5%-0.9% NaCl [Dextrose 5%-Normal Saline] 1,000 ml IV ASDIRECTED 08/01/19 21:22 DRUG SCREEN, URINE [URCHEM] Stat - Assessment/Plan Last 24 Hours: My Active Orders 08/01/19 17:10 Blood Glucose Check, Bedside [RC] ONETIME EKG Documentation Completion [RC] STAT Blood Culture x2 Reflex Set [OM.PC] Stat 08/01/19 17:35 CULTURE BLOOD [BC] Stat 08/01/19 18:00 CULTURE BLOOD [BC] Stat 08/01/19 19:45 niCARdipine HCl [Nicardipine HCl] 25 mg Sodium Chloride 0.9% [Normal Saline] 250 ml IV TITRATE 08/01/19 21:00 Dextrose 5%-0.9% NaCl [Dextrose 5%-Normal Saline] 1,000 ml IV ASDIRECTED 08/01/19 21:22 DRUG SCREEN, URINE [URCHEM] Stat
[2019-08-01] MEDS ORDERED: niCARdipine HCl 25 MG in Sodium Chloride 0.9% 250 ML IV SCH ×3 (17:15→19:45)
[2019-08-01] MEDS ORDERED: LORazepam 2 MG/ML SDV ONE (17:15)
[2019-08-01] MEDS ORDERED: Sodium Chloride 0.9% 1,000 ML IV SCH (17:15)
--- NOTE | 2019-08-01 17:45 | CT ---
Head CT Technique: Multiple axial sections through the brain were obtained. Intravenous contrast was not utilized. Comparison: Prior head CT study of 11/03/17. Findings: Ventricles along with basal cisterns and sulci over the convexities are mildly prominent. Diminished density is noted within the periventricular and subcortical white matter which is compatible with small vessel ischemic demyelination change. No other abnormal parenchymal densities are seen. No evidence of intracranial hemorrhage. No midline shift or mass-effect is seen. Mucosal thickening or retention cyst is noted inferiorly within the right maxillary sinus. Minimal areas of mucosal thickening are noted within the ethmoid sinuses. Mastoid sinuses show nothing acute. No acute calvarial finding is seen. Impression: 1. Sinus findings believed to be chronic. 2. Senescent change as noted above which appears fairly stable from previous exam. 3. No acute intracranial abnormality is appreciated. Diagnostic code #2 This report was dictated in [facility]
[2019-08-01] MEDS ORDERED: Acetaminophen 650 MG Supp RECTAL ONE (17:52)
[2019-08-01] MEDS ORDERED: Dextrose 5%-0.9% NaCl 1,000 ML IV SCH ×2 (18:00→21:00)
--- NOTE | 2019-08-01 19:23 | CR ---
Chest: Portable supine view of the chest was obtained. Comparison: Prior chest x-ray of 11/03/17. Heart size is less prominent than previous study. Tortuous thoracic aorta is noted. Portion of the lateral right costophrenic angle is missing on current study. Lungs otherwise are clear. Bony structures are grossly intact. Impression: 1. Nothing acute is seen on limited supine portable chest x-ray as described above. Diagnostic code #2 Study was dictated in MDT
[2019-08-01] MEDS ORDERED: Furosemide 40 MG/4 ML VIAL IVPUSH STA (19:54)
[2019-08-02] MEDS ORDERED: Furosemide 40 MG/4 ML VIAL IVPUSH SCH (09:00)
== END 2019-08-01 21:00 ==
LOC: JD.ED 16:55
DX: I13.0 Hypertensive heart and chronic kidney disease with heart failure and stage 1 through stage 4 chronic kidney disease, or unspecified chronic kidney disease (principal); I50.9 Heart failure, unspecified; N18.4 Chronic kidney disease, stage 4 (severe); R79.89 Other specified abnormal findings of blood chemistry; M06.9 Rheumatoid arthritis, unspecified; R50.9 Fever, unspecified; I25.2 Old myocardial infarction
CPT/HCPCS: 36415; 70450; 71045; 80053; 80306; 80307; 81001; 82553; 82962; 83605; 83735; 83880; 84484; 85007; 85027; 86140; 87040; 93005; 96365; 96366; 96375; 96376; 99285; A9270; J1940; J2060; J7042; J7050

== ENCOUNTER 2021-10-07 09:31 | Emergency (ER) | payer MEDICARE, OTHER ==
[2021-10-07] MEDS ORDERED: Metoclopramide 10 MG/2 ML SDV IVPUSH ONE ×2 (09:38→16:05)
[2021-10-07] MEDS ORDERED: HYDROmorphone 0.5 MG/0.5 ML Syringe IVPUSH ONE ×2 (09:38→16:47)
[2021-10-07] MEDS ORDERED: Dextrose 5%-0.9% NaCl 1,000 ML IV SCH (09:45)
[2021-10-07] MEDS ORDERED: hydrALAZINE 20 MG/ML SDV IVPUSH ONE ×2 (11:31→13:52)
[2021-10-07] MEDS ORDERED: Furosemide 40 MG/4 ML VIAL IVPUSH ONE (11:34)
[2021-10-07] MEDS ORDERED: 50% Dextrose in Water 50 ML Syringe IVPUSH ONE (11:58)
[2021-10-07] MEDS ORDERED: Insulin Regular, Human 100 Units/ML 3 ML Vial IV ONE (11:59)
[2021-10-07] MEDS ORDERED: HYDROmorphone 1 MG/ML Syringe IVPUSH ONE (13:33)
[2021-10-07] MEDS ORDERED: amLODIPine 10 MG Tab PO ONE (13:51)
[2021-10-07 14:04] VITALS: PULSE 81
[2021-10-07 14:10] VITALS: BP 167/92
[2021-10-07] MEDS ORDERED: hydrALAZINE 20 MG/ML SDV ONE (16:44)
[2021-10-07] MEDS ORDERED: LORazepam 2 MG/ML SDV IV ONE (16:47)
== END 2021-10-07 17:23 ==
LOC: JD.ED 09:31 → EDBD 09:31 → JD.ED 17:23
DX: S72.002A Fracture of unspecified part of neck of left femur, initial encounter for closed fracture (principal); E11.22 Type 2 diabetes mellitus with diabetic chronic kidney disease; I13.0 Hypertensive heart and chronic kidney disease with heart failure and stage 1 through stage 4 chronic kidney disease, or unspecified chronic kidney disease; N18.4 Chronic kidney disease, stage 4 (severe); I50.9 Heart failure, unspecified; I25.2 Old myocardial infarction; E87.5 Hyperkalemia; Z79.899 Other long term (current) drug therapy; W18.30XA Fall on same level, unspecified, initial encounter
CPT/HCPCS: 36415; 71045; 72170; 73552; 80053; 81001; 83735; 83880; 84484; 85025; 85610; 85730; 86140; 86850; 86900; 86901; 93005; 96374; 96375; 96376; 99284; A9270; J0360; J1170; J1815; J1940; J2060; J2765; J7042; 93010

== ENCOUNTER 2021-10-14 10:06 | Emergency (ER) | payer MEDICARE, OTHER ==
[2021-10-14 10:41] VITALS: BP 183/88; PULSE 71
== END 2021-10-14 12:17 | disposition home or self-care (01) ==
LOC: JD.ED 10:06
DX: S71.101D Unspecified open wound, right thigh, subsequent encounter (principal)
CPT/HCPCS: 99282

== ENCOUNTER 2022-06-30 10:05 | Emergency (ER) | payer MEDICARE, OTHER ==
[2022-06-30] MEDS ORDERED: 50% Dextrose in Water 50 ML Syringe IVPUSH STA ×2 (10:14→11:00)
[2022-06-30 10:55] LABS: BASOPHILS ABSOLUTE AUTO 0.05 K/mm3 (0.01-0.08); BASOPHILS PERCENT AUTO 0.6 % (0.1-1.2); EOSINOPHILS ABSOLUTE AUTO 0.03 K/mm3 (0.04-0.54); EOSINOPHILS PERCENT AUTO 0.4 (0.8-7.0); HEMATOCRIT 33.6 % (40.1-51.0); HEMOGLOBIN 10.2 gm/dl (13.7-17.5); IMMATURE GRAN ABSOLUTE AUTO 0.55 K/mm3 (0.00-0.10); IMMATURE GRAN PERCENT AUTO 6.5 % (<=1.0); LYMPHOCYTES ABSOLUTE AUTO 0.61 K/mm3 (1.32-3.57); LYMPHOCYTES PERCENT AUTO 7.3 % (21.8-53.1); MEAN CORPUSCULAR HGB CONC 30.4 g/dl (32.2-35.5); MEAN CORPUSCULAR VOLUME 98.8 fl (79.0-92.2); MEAN PLATELET VOLUME 11.3 fl (9.4-12.3); MONOCYTES ABSOLUTE AUTO 0.93 K/mm3 (0.30-0.82); MONOCYTES PERCENT AUTO 11.1 % (5.3-12.2); NEUTROPHILS ABSOLUTE AUTO 6.24 K/mm3 (1.78-5.38); NEUTROPHILS PERCENT AUTO 74.1 % (34.0-67.9); PLATELET COUNT,PLT 78 K/mm3 (163-337); WHITE BLOOD CELL COUNT,WBC 8.41 K/mm3 (4.23-9.07)
[2022-06-30] MEDS ORDERED: 50% Dextrose in Water 50 ML Syringe ONE (10:56)
[2022-06-30 11:40] LABS: INR 2.88; PROTHROMBIN TIME 28.5 SECONDS (9.7-12.0)
[2022-06-30 11:41] LABS: PTT,PARTIAL THROMBOPLSTIN TIME 32.8 SECONDS (21.7-31.4)
[2022-06-30 11:46] LABS: A/G RATIO 0.7 (1-2); ALBUMIN 3.1 g/dl (3.4-5.0); BILIRUBIN TOTAL 2.8 mg/dL (0.2-1.0); BUN/CREATININE RATIO 13.4 (14-18); CALCIUM 7.8 mg/dL (8.5-10.1); CREATININE 5.6 mg/dL (0.7-1.3); EST CRCL DRUG DOSING (CG) 12.21 mL/min; PROTEIN TOTAL,TP 7.6 g/dl (6.4-8.2)
[2022-06-30 11:49] LABS: SLIDE REVIEW ABNORMAL SMEAR
[2022-06-30] MEDS ORDERED: Ondansetron 4 MG/2 ML SDV IVPUSH ONE (11:52)
[2022-06-30] MEDS ORDERED: 50% Dextrose in Water 50 ML Syringe IVPUSH ONE ×2 (11:52→14:30)
[2022-06-30] MEDS ORDERED: Sodium Bicarbonate 8.4% 50 MEQ/50 ML Syringe IVPUSH ONE ×2 (12:01→13:59)
[2022-06-30] MEDS ORDERED: Calcium Gluconate 10% 1 GM/10 ML SDV IVPUSH ONE (12:01)
[2022-06-30] MEDS ORDERED: Sodium Polystyrene Sulfonate 15 GM/60 ML Susp 60 ML Bot PO ONE (12:02)
[2022-06-30] MEDS ORDERED: Sodium Chloride 0.9% 1,000 ML IV ONE (12:02)
[2022-06-30] MEDS ORDERED: Albuterol 0.083% 2.5 MG/3 ML Neb Soln NEB ONE (12:03)
[2022-06-30] MEDS ORDERED: Insulin Regular, Human 100 Units/ML 3 ML Vial SUBCUT ONE ×2 (12:27→14:30)
[2022-06-30 13:15] VITALS: BP 113/80
[2022-06-30 14:06] LABS: CORONAVIRUS COVID-19 NAA NEGATIVE (NEGATIVE); INFLUENZA A NAA NEGATIVE (NEGATIVE); RESPIRATORY SYNCYTIAL VIR NAA NEGATIVE (NEGATIVE)
[2022-06-30] MEDS ORDERED: Sodium Chloride 0.9% 1,000 ML IV SCH (14:30)
[2022-06-30] MEDS ORDERED: Lidocaine 2% 11 ML Jelly Filled Syringe ONE (14:32)
[2022-06-30 15:34] LABS: A/G RATIO 0.7 (1-2); ALBUMIN 2.9 g/dl (3.4-5.0); ANION GAP 30.1 (5-15); CREATININE 5.5 mg/dL (0.7-1.3); EST CRCL DRUG DOSING (CG) 12.44 mL/min
[2022-06-30 15:39] LABS: BILIRUBIN TOTAL 2.9 mg/dL (0.2-1.0); POTASSIUM,K 7.1 mEq/L (3.5-5.1); PROTEIN TOTAL,TP 7.3 g/dl (6.4-8.2)
[2022-06-30 15:40] LABS: CALCIUM 7.9 mg/dL (8.5-10.1)
[2022-06-30 16:26] VITALS: PULSE 72
[2022-06-30 17:20] LABS: APPEARANCE,URINE CLEAR (Clear); BILIRUBIN,URINE NEGATIVE (Negative); COLOR,URINE YELLOW (Yellow); GLUCOSE,URINE NEGATIVE (Negative); KETONES,URINE NEGATIVE (Negative); LEUKOCYTE ESTERASE,URINE NEGATIVE (Negative); NITRITE,URINE NEGATIVE (Negative); OCCULT BLOOD,URINE 2+ (Negative); PH,URINE 5.5 (5.0-8.0); PROTEIN,URINE 3+ (Negative); UROBILINOGEN,URINE 0.2 (0.2-1.0)
[2022-06-30 17:42] LABS: BACTERIA,URINE FEW /hpf (FEW); MUCUS,URINE NOT SEEN /hpf (FEW); SQUAMOUS EPITHELIAL CELLS,UR 0-5 /hpf (0-5); WBC,URINE 0-5 /hpf (0-5)
== END 2022-06-30 17:19 ==
LOC: JD.ED 10:05
DX: S00.81XA Abrasion of other part of head, initial encounter (principal); K72.00 Acute and subacute hepatic failure without coma; R77.8 Other specified abnormalities of plasma proteins; N17.9 Acute kidney failure, unspecified; I13.0 Hypertensive heart and chronic kidney disease with heart failure and stage 1 through stage 4 chronic kidney disease, or unspecified chronic kidney disease; N18.9 Chronic kidney disease, unspecified; I50.9 Heart failure, unspecified; D63.1 Anemia in chronic kidney disease; E87.5 Hyperkalemia; I25.2 Old myocardial infarction; Z79.899 Other long term (current) drug therapy; Z99.2 Dependence on renal dialysis; Z20.822 Contact with and (suspected) exposure to COVID-19; W18.09XA Striking against other object with subsequent fall, initial encounter
CPT/HCPCS: 0241U; 36415; 70450; 71045; 74176; 80053; 80307; 81001; 82947; 84484; 85025; 85610; 85730; 93005; 94640; 96361; 96374; 96375; 96376; 99285; A9270; J0612; J1815; J2405; J7030; 51702; 93010; J3490; J7620-GY